=== PATIENT | female | born 1950 | race Caucasian/White ===

== ENCOUNTER 2020-02-04 16:31 | Emergency (ER) | payer MEDICARE, OTHER ==
[~2020-02-04] VITALS: Ht 172.7 cm; Wt 80.0 kg
[2020-02-04] MEDS ORDERED: MORPHINE SULFATE 4 MG/ML DISP.SYRIN. IV ONE (17:15)
--- NOTE | 2020-02-04 17:15 | PHYS DOC ---
General Adult EDM: Chief Complaint: FLANK PAIN HPI: HPI: The history was obtained from the patient. Patient is a 69-year-old female with PMH kidney stones who presents with a chief complaint of left flank pain. Patient states she had sudden onset left flank pain 2 weeks ago. She states she used to drink pop regularly but her oral maxillofacial surgeon encouraged her to switch to water. She states that soon as she switch to water she began having somewhat severe left flank pain. She states it is difficult it comfortable. She states this feels similar to previous kidney stones. Denies any history of ureteral stent or lithotripsy. Notes dysuria and increased urge to void. St chidis she has been seen by to outpatient urgent care facilities who diagnosed with a UTI. She has been taking antibiotics and completed a course although she is unsure the name of this medicine. Denies fevers. Does note nausea without vomiting. States she has not reported to the emergency department sooner because she does not like needles. Denies abdominal pain. Denies chest pain, shortness breath, or syncope. Patient denies any urinary retention, stool incontinence, saddle anesthesia, history of IV drug use, or history of cancer. (CATHY GREEN DO) Review of Systems: Review of Systems: Constitutional: Denies fever or chills Eyes: Denies change in visual acuity HENT: Denies nasal congestion or sore throat Respiratory: Denies cough or shortness of breath Cardiovascular: Denies chest pain or edema GI: Positive for nausea, flank pain : Denies dysuria Musculoskeletal: Denies back pain or joint pain Integument: Denies rash Neurologic: Denies headache, focal weakness or sensory changes Endocrine: Denies polyuria or polydipsia Lymphatic: Denies swollen glands Psychiatric: Denies depression or anxiety (CATHY GREEN DO) Heart Score: Risk Factors: Risk Factors: DM, Current or recent (<one month) smoker, HTN, HLP, family history of CAD, obesity. Risk Scores: Score 0 - 3: 2.5% MACE over next 6 weeks - Discharge Home Score 4 - 6: 20.3% MACE over next 6 weeks - Admit for Clinical Observation Score 7 - 10: 72.7% MACE over next 6 weeks - Early Invasive Strategies (CATHY GREEN DO) Physical Exam: PE: Constitutional: Well developed, well nourished, no acute distress, non-toxic appearance. [] HENT: Normocephalic, atraumatic, bilateral external ears normal, oropharynx moist, no oral exudates, nose normal. [] Eyes: PERRLA, EOMI, conjunctiva normal, no discharge. [] Neck: Normal range of motion, no tenderness, supple, no stridor. [] Cardiovascular:Heart rate regular rhythm, no murmur [] Lungs & Thorax: Bilateral breath sounds clear to auscultation [] Abdomen: soft, no tenderness, no masses, no pulsatile masses. [] Skin: Warm, dry, no erythema, no rash. [] Back: Moderate left CVA tenderness Extremities: No tenderness, no cyanosis, no clubbing, ROM intact, no edema. [] Neurologic: Alert and oriented X 3, normal motor function, normal sensory function, no focal deficits noted. [] Psychologic: Affect normal, judgement normal, mood normal. [] (CATHY GREEN DO) Current Patient Data: Labs: Laboratory Tests Test 02/04/20 17:18 02/04/20 17:19 Urine Collection Type Unknown Urine Color Straw Urine Clarity Clear Urine pH 8.0 Urine Specific [place] 1.015 Urine Protein Neg Urine Glucose (UA) Neg mg/dL Urine Ketones (Stick) Neg mg/dL Urine Blood Neg Urine Nitrite Neg Urine Bilirubin Neg Urine Urobilinogen Dipstick 0.2 mg/dL Urine Leukocyte Esterase Neg Urine RBC Rare /HPF Urine WBC 0 /HPF Urine Bacteria Few /HPF White Blood Count 7.8 x10^3/uL Red Blood Count 4.50 x10^6/uL Hemoglobin 14.1 g/dL Hematocrit 42.3 % Mean Corpuscular Volume 94 fL Mean Corpuscular Hemoglobin 31 pg Mean Corpuscular Hemoglobin Concent 33 g/dL Red Cell Distribution Width 12.9 % Platelet Count 325 x10^3/uL Neutrophils (%) (Auto) 48 % Lymphocytes (%) (Auto) 36 % Monocytes (%) (Auto) 14 % Eosinophils (%) (Auto) 2 % Basophils (%) (Auto) 1 % Neutrophils # (Auto) 3.7 x10^3uL Lymphocytes # (Auto) 2.8 x10^3/uL Monocytes # (Auto) 1.1 x10^3/uL Eosinophils # (Auto) 0.2 x10^3/uL Basophils # (Auto) 0.1 x10^3/uL Sodium Level 142 mmol/L Potassium Level 3.5 mmol/L Chloride Level 104 mmol/L Carbon Dioxide Level 30 mmol/L Anion Gap 8 Blood Urea Nitrogen 14 mg/dL Creatinine 0.9 mg/dL Estimated GFR (Cockcroft-Gault) 62.5 BUN/Creatinine Ratio 16 Glucose Level 91 mg/dL Calcium Level 9.0 mg/dL Total Bilirubin 0.3 mg/dL Aspartate Amino Transf (AST/SGOT) 24 U/L Alanine Aminotransferase (ALT/SGPT) 29 U/L Alkaline Phosphatase 73 U/L Total Protein 7.7 g/dL Albumin 3.8 g/dL Albumin/Globulin Ratio 1.0 Lipase 145 U/L Current Medications Medications (Trade) Dose Ordered Sig/Ra Route PRN Reason Start Time Stop Time Status Last Admin Dose Admin Ondansetron HCl (Zofran) 4 mg 1X ONCE IVP 02/04/20 17:15 02/04/20 17:38 DC 02/04/20 17:40 Morphine Sulfate (Morphine 4mg Syringe) 4 mg 1X ONCE IV 02/04/20 17:15 02/04/20 17:36 DC Fentanyl Citrate (Fentanyl 2ml Vial) 50 mcg 1X ONCE IVP 02/04/20 17:45 02/04/20 17:46 DC 02/04/20 17:44 Fentanyl Citrate (Fentanyl 2ml Vial) 100 mcg STK-MED ONCE .ROUTE 02/04/20 17:38 02/04/20 17:38 DC Vital Signs: Vital Signs Date Time Temp Pulse Resp B/P (MAP) Pulse Ox O2 Delivery O2 Flow Rate FiO2 02/04/20 17:44 18 99 (CATHY GREEN DO) EKG: EKG: [] (CATHY GREEN DO) Radiology/Procedures: Radiology/Procedures: [] (CATHY GREEN DO) Radiology/Procedures: PROCEDURE: CT ABDOMEN PELVIS WO CONTRAST Examination: CT ABDOMEN PELVIS WO CONTRAST History: Reason: L flank pain. h/o kidney stones / Spl. Instructions: / History: Comparison/Correlation: None Findings: Axial images of the abdomen and pelvis were obtained without contrast. Sagittal and coronal reformatted images were provided. The visualized lung bases are clear. Liver, spleen, pancreas, adrenal glands, and gallbladder fossa are unremarkable. Large quantity of stool is present in the colon. No ascites or pelvic free fluid. Cholecystectomy noted. No extraluminal gas. No hydronephrosis or hydroureter. No radiopaque collecting system calculi. Renal contours are unremarkable. No extraluminal gas. No inflammatory change about the cecum. Mild diverticulosis of the colon is present. Cecum is noted at the upper abdominal midline. Appendix is not delineated. No inflammatory change seen about the cecum. Transitional L5 vertebra is seen. Sclerosis involving the left superior pubic ramus is partially seen and probably represents bone island. Moderate L4-5 disc space narrowing is present. Concentric disc bulge present. Impression: No radiopaque collecting system calculi. No collecting system obstruction. Mild diverticulosis. No acute inflammation. RS Compliance Statement: One or more of the following individualized dose reduction techniques were utilized for this examination: 1. Automated exposure control 2. Adjustment of the mA and/or kV according to patient size 3. Use of iterative reconstruction technique Electronically signed by: Jose Alejandro Snyder MD (02/04/2020 5:59 PM) [facility] (RADHA LANDRUM DO) Course & Med Decision Making: Course & Med Decision Making Pertinent Labs and Imaging studies reviewed. (See chart for details) Patient is an uncomfortable appearing 69-year-old female who presents with chief complaint of left CVA tenderness. Initial vital signs grossly unremarkable. Physical exam noted above. Basic labs were obtained and have been unrevealing to this point. Normal kidney function. Urine without evidence of infection. CT imaging is currently pending. I have signed out the patient's emergency department care to Dr. Landrum. We discussed the history, physical exam findings, completed and pending laboratory results and imaging studies. We have also discussed the current treatment plan and expected clinical course. Please refer to chart for the patient's remaining emergency department course, final disposition, and clinical impression(s). (CATHY GREEN DO) Course & Med Decision Making Comprehensive signout obtained from off going physician Patient seen and evaluated by myself with certain aspects of HPI and physical exam repeated Reviewed comprehensive diagnostic work-up performed thus far in ER setting. Patient symptomatically much improved with ER intervention at this time I discussed grossly non-concerning findings. I discussed limited utility in further diagnostic work-up in ER setting I discussed most likely diagnosis of self-limiting flank/back pain. I suspect this is likely musculoskeletal in nature as patient has been working out more with her personal care aide on post I did disclose this might be an acute presentation of more concerning pathology and thus, I educated extensively on concerning signs or symptoms that should prompt immediate return to our ER for evaluation Again, strict return precautions were discussed with good understanding, all questions and concerns addressed prior to ER departure in stable condition (RADHA LANDRUM DO) Dragon Disclaimer: Dragon Disclaimer: This electronic medical record was generated, in whole or in part, using a voice recognition dictation system. (CATHY GREEN DO) Departure Departure: Impression: Primary Impression: Lt flank pain Additional Impression: Strain of fascia of lower back Disposition: HOME/RESIDENCE PRIOR TO ADM Condition: STABLE Referrals: PCP,MIRIAM (PCP) Patient Instructions: Back Exercises, Generic, [facility] Additional Instructions: You have been evaluated in the Emergency Department today for abdominal pain/back pain. Your evaluation was not suggestive of any emergent condition requiring medical intervention at this time. However, some problems make take more time to appear. Therefore, it is important for you to watch for any new symptoms or worsening of your current condition. As discussed prior to ER departure, please see the attached sheet of local primary care physicians for which I would like you to call and establish care. You would benefit from following up with them for continued medical evaluation and treatment of your lower back problems Return to the Emergency Department if you experience worsening pain, persistent fevers greater than 100.4, recurrent vomiting, blood in vomit, blood in stool, dark tarry stool, chest pain, difficulty breathing, or any other concerning symptoms. Justification of Admission: Justification of Admission: Justification of Admission Dx: N/A (CATHY GREEN DO) Justification of Admission Dx: N/A (RADHA LANDRUM DO) CATHY GREEN DO Feb 04, 2020 17:15 RADHA LANDRUM DO Feb 04, 2020 18:40
[2020-02-04] MEDS: ONDANSETRON PF 4 MG/2 ML VIAL. IVP ONE (17:40)
[2020-02-04 17:43] LABS: BASO # 0.1 x10^3/uL (0.0-0.2); BASO % 1 % (0-3); EOS # 0.2 x10^3/uL (0.0-0.7); EOS % 2 % (0-3); HEMATOCRIT 42.3 % (36.0-47.0); HEMOGLOBIN 14.1 g/dL (12.0-15.5); LYMPH # 2.8 x10^3/uL (1.0-4.8); LYMPH % 36 % (24-48); MEAN CORPUSCULAR HEMOGLOBIN 31 pg (25-35); MEAN CORPUSCULAR HGB CONC 33 g/dL (31-37); MEAN CORPUSCULAR VOLUME 94 fL (79-100); MONO # 1.1 x10^3/uL (0.0-1.1); MONO % 14 % (0-9); NEUT # 3.7 x10^3uL (1.8-7.7); NEUT % 48 % (31-73); PLATELET COUNT 325 x10^3/uL (140-400); RED CELL DISTRIBUTION WIDTH 12.9 % (11.5-14.5); WHITE BLOOD COUNT 7.8 x10^3/uL (4.0-11.0)
[2020-02-04 17:44] LABS: BILIRUBIN,URINE NEG (NEG); CLARITY,URINE CLEAR; COLOR,URINE STRAW; GLUCOSE,URINE NEG (NEG)
[2020-02-04 17:45] LABS: BACTERIA,URINE FEW /HPF (0-FEW); NITRITE,URINE NEG (NEG); RBC,URINE RARE /HPF (0-2); UROBILINOGEN,URINE 0.2 mg/dL (0.2 mg/dL); WBC,URINE 0 /HPF (0-4)
[2020-02-04 17:45] LABS: CREATININE 0.9 mg/dL (0.6-1.0); GFR 62.5; POTASSIUM 3.5 mmol/L (3.5-5.1)
[2020-02-04 17:51] LABS: ALBUMIN 3.8 g/dL (3.4-5.0); TOTAL BILIRUBIN 0.3 mg/dL (0.2-1.0); TOTAL PROTEIN 7.7 g/dL (6.4-8.2)
[2020-02-04 18:01] VITALS: BP 142/77
--- NOTE | 2020-02-04 18:02 | RAD ---
Examination: CT ABDOMEN PELVIS WO CONTRAST History: Reason: L flank pain. h/o kidney stones / Spl. Instructions: / History: Comparison/Correlation: None Findings: Axial images of the abdomen and pelvis were obtained without contrast. Sagittal and coronal reformatted images were provided. The visualized lung bases are clear. Liver, spleen, pancreas, adrenal glands, and gallbladder fossa are unremarkable. Large quantity of stool is present in the colon. No ascites or pelvic free fluid. Cholecystectomy noted. No extraluminal gas. No hydronephrosis or hydroureter. No radiopaque collecting system calculi. Renal contours are unremarkable. No extraluminal gas. No inflammatory change about the cecum. Mild diverticulosis of the colon is present. Cecum is noted at the upper abdominal midline. Appendix is not delineated. No inflammatory change seen about the cecum. Transitional L5 vertebra is seen. Sclerosis involving the left superior pubic ramus is partially seen and probably represents bone island. Moderate L4-5 disc space narrowing is present. Concentric disc bulge present. Impression: No radiopaque collecting system calculi. No collecting system obstruction. Mild diverticulosis. No acute inflammation. PQRS Compliance Statement: One or more of the following individualized dose reduction techniques were utilized for this examination: 1. Automated exposure control 2. Adjustment of the mA and/or kV according to patient size 3. Use of iterative reconstruction technique Electronically signed by: Jose Alejandro Snyder MD (02/04/2020 5:59 PM) [facility]
[2020-02-04 18:11] LABS: U PREG PATIENT NEGATIVE (NEG)
== END 2020-02-04 18:49 | disposition home or self-care (01) ==
LOC: ER 16:31
DX: S39.012A Strain of muscle, fascia and tendon of lower back, initial encounter (principal); R10.9 Unspecified abdominal pain; R30.0 Dysuria; Z87.442 Personal history of urinary calculi; X58.XXXA Exposure to other specified factors, initial encounter; Y93.89 Activity, other specified; Y92.89 Other specified places as the place of occurrence of the external cause; Y99.8 Other external cause status
CPT/HCPCS: 36415; 74176; 80053; 81001; 81025; 83690; 85025; 96374; 96375; 99284; J2405; J3010